=== PATIENT | male | born 1950 | race Caucasian/White ===

== ENCOUNTER 2016-09-27 10:35 | Outpatient (CLI) | payer OTHER ==
--- NOTE | 2016-09-27 13:25 | CT ---
EXAM: CT cervical spine without contrast HISTORY: Cervical radiculopathy COMPARISON: None TECHNIQUE: CT cervical spine performed without intravenous contrast. Coronal and sagittal reformat antonio images obtained. FINDINGS: Vertebral bodies are normal in height. No fracture. No subluxation. Multilevel margina l osteophyte formation. Multilevel intervertebral disc space narrowing with multilevel mild and mod erate intervertebral disc space narrowing. There are atherosclerotic calcifications in the carotid arteries. C2-C3: No central canal or neural foraminal narrowing. C3-C4: Posterior disc osteophyte complex and facet arthrosis causing mild central canal and moderat e bilateral neural foraminal narrowing. C4-C5: Posterior disc osteophyte complex and facet arthrosis causing mild central canal and mild bi lateral neural foraminal narrowing. C5-C6: Posterior disc osteophyte complex and facet arthrosis causing mild central canal and mild bi lateral neural foraminal narrowing. C6-C7: Posterior disc osteophyte complex and facet arthrosis causing mild central canal and mild to moderate bilateral neural foraminal narrowing. C7-C1: No central canal or neural foraminal narrowing. IMPRESSION: Chronic discogenic degenerative disease and facet arthrosis. Please see segmental anal ysis, noting central canal and neural foraminal narrowing.
--- NOTE | 2016-09-27 13:25 | DI ---
EXAM: Chest PA and lateral HISTORY: Cough FINDINGS: Prior studies are not available for comparison. The lungs are free of acute airspace or in terstitial opacities. The aorta is normal in caliber. The heart size is normal. The bones are intac t. No pneumothorax or pleural effusions are detected. Surgical clips are detected in the right upper quadrant. IMPRESSION: No acute cardiopulmonary disease.
--- NOTE | 2016-09-27 13:45 | CT ---
EXAM: CT thoracic spine without contrast HISTORY: Neck and back pain. COMPARISON: None TECHNIQUE: Serial axial images of the thoracic spine were obtained without contrast. These were vi ewed in multiple planes. FINDINGS: The vertebral bodies demonstrate no acute compression fracture. There is anterior disc os teophytes from the mid through distal thoracic spine. There is minimal facet arthropathy. Mild ant erior wedging deformities are noted in the mid and distal thoracic spine. No focal compression frac ture is identified. The soft tissues demonstrates scattered calcified mediastinal lymph nodes. The re is no significant central or neural foraminal narrowing noted in the thoracic spine. There is mi ld atherosclerotic disease. IMPRESSION: 1. No acute compression fracture or subluxation. 2. Mild scattered degenerative disease of the thoracic spine with no significant central or neural foraminal narrowing.
== END 2016-09-27 10:36 | disposition home or self-care (01) ==
LOC: RAD 10:35
PROVIDERS: ATTEND Internal Medicine
DX: M54.9 Dorsalgia, unspecified (principal); R05 Cough; M54.12 Radiculopathy, cervical region

== ENCOUNTER 2016-10-07 22:27 | Emergency (ER) ==
[2016-10-07 22:37] VITALS: TEMP 98.6; BMI 35.4
[2016-10-07] MEDS ORDERED: DUONEB NEB STA (23:15)
--- NOTE | 2016-10-07 23:34 | ED.PDOC ---
General ED Provider: Dr. FELICITY JONES Chief Complaint: Cough Stated Complaint: Cough for 3 days, worse at night. Cough is productive of yellow sputum. He coughed so much he got shot of breath tonight then came to ER. Time Seen by Physician: 23:31 Mode of Arrival: Walk-In Information Source: Patient Exam Limitations: No limitations Primary Care Provider: FORTUNATO NESBITT Nursing and Triage Documentation Reviewed and Agree: Yes Review of Systems - Review Of Systems Constitutional: Reports: No symptoms Eyes: Reports: No symptoms Ears, Nose, Mouth, Throat: Reports: No symptoms Respiratory: Reports: Cough, Short of air Cardiac: Reports: No symptoms GI: Reports: No symptoms : Reports: No symptoms Musculoskeletal: Reports: No symptoms Skin: Reports: No symptoms Neurological: Reports: Anxiety Endocrine: Reports: No symptoms Hematologic/Lymphatic: Reports: No symptoms All Other Systems: Reviewed and Negative Past Medical History - Past Medical History Endocrine: Reports: DM 1, Dyslipidemia Cardiovascular: Reports: Hypertension Respiratory: Reports: Asthma Hematological: Reports: None Gastrointestinal: Reports: None Genitourinary: Reports: None Neuro/Psych: Reports: None Musculoskeletal: Reports: None Cancer: Reports: Skin - Surgical History General Surgical History: Reports: Cholecystectomy, Orthopedic (Rotator vuff 2009, Trigger finger relase. ) - Family History Family History: Reports: None - Social History Smoking Status: Former smoker Hx Substance Use: Yes (ALCOHOL IN PAST) Alcohol Screening: None - Immunizations Tetanus Shot up to Date: (UNKNOWN) Physical Exam - Physical Exam Appearance: Well-appearing, Ill-appearing, No pain distress, Well-nourished Eyes: JENELLE, EOMI, Conjunctiva clear ENT: Ears normal, Nose normal, Oropharynx normal Respiratory: Airway patent, Breath sounds clear, Breath sounds equal, Respirations nonlabored Cardiovascular: RRR, Pulses normal, No rub, No murmur GI/: Soft, Nontender, No masses, Bowel sounds normal, No Organomegaly Musculoskeletal: Normal strength, ROM intact, No edema, No calf tenderness Skin: Warm, Dry, Normal color Neurological: Sensation intact, Motor intact, Reflexes intact, Cranial nerves intact, Alert, Oriented Psychiatric: Affect appropriate, Mood appropriate Interpretation - Radiology Interpretation Radiology Interpretation By: ED Physician Radiology Results: Negative Exam Interpreted: CXR Critical Care Note - Critical Care Note Total Time (mins): 0 Course - Course Hematology/Chemistry: 10/07/16 23:44 10/07/16 23:44 Orders, Labs, Meds: Lab Review 10/07/16 10/07/16 23:44 23:45 WBC 7.14 RBC 4.83 Hgb 14.9 Hct 43.1 MCV 89.2 MCH 30.8 MCHC 34.6 RDW Coeff of Brenda 13.4 Plt Count 148 Immature Gran % (Auto) 0.3 Neut % (Auto) 64.5 Lymph % (Auto) 18.8 [place] % (Auto) 10.8 H Eos % (Auto) 4.5 Baso % (Auto) 1.1 Immature Gran # (Auto) 0.0 Neut # 4.6 Lymph # 1.3 [place] # 0.8 Eos # 0.3 Baso # 0.1 Sodium 135 L Potassium 4.6 Chloride 101 Carbon Dioxide 22 L Anion Gap 16.6 BUN 24 H Creatinine 1.57 H Estimated GFR (MDRD) 44.00 BUN/Creatinine Ratio 15.28 Glucose 227 H Calcium 9.8 Total Bilirubin 0.61 AST 38 H ALT 71 Alkaline Phosphatase 81 Total Protein 7.7 Albumin 3.8 Globulin 3.9 Albumin/Globulin Ratio 0.97 Influenza A (Rapid) Negative Influenza B (Rapid) Negative Orders Category Date Time Status NEBULIZER TREATMENT Stat CARDIO 10/07/16 23:15 Completed BLOOD CULTURE Stat LAB 10/07/16 23:44 Received CBC W/ AUTO DIFF Stat LAB 10/07/16 23:44 Completed COMPREHENSIVE METABOLIC PANEL Stat LAB 10/07/16 23:44 Completed FLU A & B RAPID TEST [RAPID FLU A/B] Stat LAB 10/07/16 23:45 Completed MOLECULAR GROUP A STREP Stat LAB 10/07/16 23:45 Results STREP SCREEN Stat LAB 10/07/16 23:45 Results Benzonatate [Tessalon Perles] MEDS 10/08/16 00:11 Discontinued 100 mg PO ONCE STA Ipratropium/Albuterol Neb [Duoneb] MEDS 10/07/16 23:15 Discontinued 1 vial NEB ONCE STA CHEST, 2 VIEWS PA & LAT Stat RADS 10/07/16 23:15 Completed Medications Discontinued Medications Generic Name Dose Route Start Last Admin Trade Name Freq PRN Reason Stop Dose Admin Albuterol/Ipratropium 1 vial 10/07/16 23:15 10/07/16 23:41 Duoneb NEB 10/07/16 23:16 1 vial ONCE STA Administration Benzonatate 100 mg 10/08/16 00:11 10/08/16 00:21 Tessalon Perles PO 10/08/16 00:12 100 mg ONCE STA Administration Vital Signs: Temp Pulse Resp BP Pulse Ox 10/08/16 00:21 98.6 F 106 H 18 153/82 H 96 10/07/16 22:27 98.6 F 111 H 20 174/89 H 97 Departure - Departure Time of Disposition: 00:10 Disposition: HOME SELF-CARE Discharge Problem: Cough Instructions: Syncope (ED), Cold Symptoms (ED) Condition: Good Pt referred to PMD for follow-up: Yes Additional Instructions: Push fluids Use cough medications as prescribed Follow up with PCP in 3 days Follow up about Blood pressure also. It was elevated in ER. Prescriptions: Benzonatate [Tessalon Perles] 100 mg PO TID PRN #25 capsule PRN Reason: Cold Symptons Allergies/Adverse Reactions: Allergies No Known Drug Allergies Adverse Reaction (Verified 10/07/16 22:37) Home Medications: Ambulatory Orders Amlodipine Besylate 5 mg PO DAILY 10/07/16 Ascorbate Calcium [Vitamin C] 500 mg PO DAILY 10/07/16 Atorvastatin Calcium 20 mg PO DAILY 10/07/16 Bisoprolol Fumarate/Hctz [Bisoprolol-Hctz 10-6.25 mg Tab] 0.5 tab PO DAILY 10/07 Codeine/Promethazine Syrup [Phenergan with Codeine 6.25/10 mg/5 ml] 10 ml PO QID PRN 10/07/16 Cyclobenzaprine HCl [Flexeril] 5 mg PO TID PRN 10/07/16 D-Methorphan/Acetamin/Doxylamn [Vicks Nyquil Liquicaps] 1 each PO BID PRN D-Methorphan/PE/Acetaminophen [Vicks Dayquil Liquicaps] 1 cap PO BID PRN Ferrous Sulfate 325 mg PO BID 10/07/16 Guaifenesin/Pseudoephedrne HCl [Mucinex D ER Tablet] 1 each PO Q12H PRN Insulin Glargine,Hum.rec.anlog [Lantus] 85 unit SUBCUT BID 10/07/16 Insulin Lispro [Humalog] 1 unit SQ DIRECTED PRN 10/07/16 Lisinopril 0.5 tab PO DAILY 10/07/16 Loratadine/Pseudoephedrine [Allergy Congestion Relief Tab] 0.5 tab PO DAILY 02/15 Metformin HCl 500 mg PO BID 10/07/16 Multivitamin [Multi-Vitamin Daily] 1 each PO DAILY 10/07/16 Benzonatate [Tessalon Perles] 100 mg PO TID PRN #25 capsule 10/08/16
[2016-10-07 23:46] LABS: BASOPHILS # (AUTO) 0.1 K/uL (0-0.2); BASOPHILS % (AUTO) 1.1 % (0.0-3.0); EOSINOPHILS # (AUTO) 0.3 K/ul (0.0-0.7); EOSINOPHILS % (AUTO) 4.5 % (0.0-7.0); HEMATOCRIT 43.1 % (42.0-52.0); HEMOGLOBIN 14.9 g/dl (14.0-18.0); IMMATURE GRANULOCYTE % (AUTO) 0.3 % (0.0-5.0); LYMPHOCYTES # (AUTO) 1.3 K/uL (0.60-3.4); LYMPHOCYTES % (AUTO) 18.8 (10.0-50.0); MEAN CORPUSCULAR HEMOGLOBIN 30.8 pg (27.0-31.0); MEAN CORPUSCULAR HGB CONC 34.6 (31.8-35.4); MEAN CORPUSCULAR VOLUME 89.2 fl (80.0-94.0); MONOCYTES # (AUTO) 0.8 K/uL (0.4-2.0); MONOCYTES % (AUTO) 10.8 (0-10); NEUTROPHILS # (AUTO) 4.6 K/ul (2.0-6.9); NEUTROPHILS % (AUTO) 64.5; PLATELET COUNT 148 10^3/uL (140-440); RED BLOOD COUNT 4.83 10^6/ul (4.70-6.10); WHITE BLOOD COUNT 7.14 K/ul (4.2-10.2)
[2016-10-08 00:03] LABS: FLU INTERNAL QC INTERNAL QC VALID; RAPID FLU A NEGATIVE (NEGATIVE); RAPID FLU B NEGATIVE (NEGATIVE)
[2016-10-08 00:05] LABS: ALBUMIN 3.8 g/dL (3.4-5.0); ALBUMIN/GLOBULIN RATIO 0.97; ANION GAP 16.6; BILIRUBIN,TOTAL 0.61 mg/dL (0.00-1.20); BUN/CREATININE RATIO 15.28; CALCIUM 9.8 mg/dL (8.2-10.2); CREATININE 1.57 mg/dL (0.60-1.10); POTASSIUM 4.6 mmol/L (3.5-5.1); TOTAL PROTEIN 7.7 g/dL (5.8-8.1)
[2016-10-08] MEDS ORDERED: TESSALON PERLES PO STA (00:11)
[2016-10-08 00:23] VITALS: BP 153/82
--- NOTE | 2016-10-08 05:44 | DI ---
EXAM: PA and lateral views of the chest. HISTORY: Cough. FINDINGS: The bony structures are unremarkable. The cardiac silhouette and pulmonary vasculature a re within normal limits. The costophrenic angles are clear. No infiltrate or consolidation. Impression: No acute cardiopulmonary disease.
== END 2016-10-08 00:34 | disposition home or self-care (01) ==
LOC: ED 22:27
DX: R05 Cough (principal); R06.02 Shortness of breath; E10.9 Type 1 diabetes mellitus without complications; E78.5 Hyperlipidemia, unspecified; I10 Essential (primary) hypertension; Z79.899 Other long term (current) drug therapy
CPT/HCPCS: 36415; 80053; 85025; 87040; 87070; 87651; 87804; 87880; 94640; 99283

== ENCOUNTER 2018-01-05 07:59 | Day surgery (SDC) | payer OTHER ==
[2018-01-05] MEDS ORDERED: LIDOCAINE 1% 20 ML MDV ID STA (09:44)
[2018-01-05] MEDS ORDERED: VERSED ONE (10:50)
[2018-01-05] MEDS ORDERED: DIPRIVAN 20 ML VIAL IVP ONE (10:50)
[2018-01-05 15:01] VITALS: BP 150/65; TEMP 97.7
--- NOTE | 2018-01-06 11:20 | OP ---
PROCEDURE: COLONOSCOPY TO CECUM WITH SNARE POLYPECTOMY. ENDOSCOPIST: Radha CONKLIN M.D. INDICATION: HISTORY OF POLYPS INSTRUMENT: [employer]-[id number]. MEDICATION: PER ANESTHESIA. PROCEDURE: The patient was positioned for colonoscopy. The digital rectal exam was negative. The colonoscope was inserted through the anus and advanced to the cecum. The cecum was identified using the ileocecal valve and the appendiceal orifice as landmarks. The scope was slowly withdrawn through an adequately prepped colon. [place] Bowel Prep Score 2+3+3=8. Small polyps removed at 50cm, 60cm and 30cm using snare cautery. All were less than 1cm. Diverticulosis of the left colon. Retroflex exam was otherwise normal. The patient tolerated the procedure well without immediate complication. Withdraw time 12 minutes and 44 seconds. PLAN: 1. Suggest repeat colonoscopy in 3 years. CC: Dr. Tej CHAUHAN
== END 2018-01-05 12:00 | disposition home or self-care (01) ==
LOC: SURG 07:59
PROVIDERS: ATTEND Internal Medicine Gastroenterology
DX: Z86.010 Personal history of colon polyps (principal); K63.5 Polyp of colon; K57.30 Diverticulosis of large intestine without perforation or abscess without bleeding; Z09 Encounter for follow-up examination after completed treatment for conditions other than malignant neoplasm

== ENCOUNTER 2018-09-17 07:12 | Outpatient (CLI) | END 2018-09-17 07:13 | disposition home or self-care (01) | LOC: LAB 07:12 | PROVIDERS: ATTEND Internal Medicine | DX: E11.9 Type 2 diabetes mellitus without complications (principal) | CPT/HCPCS: 81050; 82575; 84156 ==

== ENCOUNTER 2018-10-01 07:03 | Outpatient (CLI) | payer OTHER ==
--- NOTE | 2018-10-01 08:11 | US ---
EXAM: Renal ultrasound HISTORY: Diabetes protein in urine COMPARISON: None TECHNIQUE: Renal ultrasound was performed FINDINGS: Right kidney measures 4.9 x 5.1 x 10.8 cm. Left kidney measures 5.0 x 5.0 x 10.7 cm. Anam al cortical echogenicity is normal. No hydronephrosis or renal calculus large enough to cause acoust ic shadowing. Simple anechoic cyst right inferior kidney measuring 2.5 x 2.2 x 2.2 cm. Bladder only mildly distended and poorly evaluated, grossly unremarkable. A left ureteral jet is visualized. No right ureteral jet visualized. Visualized liver is echogenic. IMPRESSION: 1. No hydronephrosis. 2. Left renal cyst. 3. Hepatic steatosis.
== END 2018-10-01 07:04 | disposition home or self-care (01) ==
LOC: RAD 07:03
PROVIDERS: ATTEND Internal Medicine
DX: E11.9 Type 2 diabetes mellitus without complications (principal); R80.9 Proteinuria, unspecified

== ENCOUNTER 2020-03-30 10:14 | Inpatient (IN) ==
--- NOTE | 2020-03-30 10:44 | ED.PDOC ---
General ED Provider: Dr. JACOB GARSIA Chief Complaint: Back Pain Time Seen by Physician: 10:44 Mode of Arrival: Walk-In Information Source: Patient Primary Care Provider: FORTUNATO NESBITT Sepsis Protocol: For patient's 13 years and over: Temp is 96.8 and below OR 101 and greater Pulse >90 BPM Resp >20/minute Acutely Altered Mental Status Are patient's symptoms suggestive of a new infection, such as: -Pneumonia -Skin, Soft Tissue -Endocarditis -UTI -Bone, Joint Infection -Implantable Device -Acute Abdominal Infection -Wound Infection -Meningitis -Blood Stream Catheter Infection -Unknown Course Course Vital Signs: Temp Pulse Resp BP Pulse Ox 03/30/20 10:15 95.0 F L 71 18 192/83 H 96 Discharge Plan Discharge Prescriptions: No Action multivitamin [Daily Multi-Vitamin] 1 EACH tablet 1 ea PO DAILY RF: 0 atorvastatin 20 MG tablet 20 mg PO DAILY RF: 0 Lantus U-100 Insulin 1 UNIT solution 80 unit subcut BID RF: 0 amlodipine 5 MG tablet 5 mg PO DAILY RF: 0 loratadine-pseudoephedrine [Allergy and Congestion Relief] 1 EACH tablet extended release 24 hr 0.5 tab PO DAILY RF: 0 ferrous sulfate 325 MG tablet 325 mg PO BID RF: 0 metformin 1,000 MG tablet 500 mg PO BID RF: 0 ascorbate calcium (vitamin C) 500 MG tablet 500 mg PO DAILY RF: 0 insulin lispro [Humalog U-100 Insulin] 100 UNIT/ML solution 1 unit SQ DIRECTED PRN (Reason: ELEVATED BLOOD SUGAR) RF: 0 bisoprolol-hydrochlorothiazide 10-6.25 mg Tablet 1 tab PO DAILY RF: 0 acetaminophen 650 mg Tablet Extended Release 650 mg PO Q12H RF: 0 losartan 100 mg Tablet 100 mg PO DAILY RF: 0 ED Provider: JACOB GARSIA
--- NOTE | 2020-03-30 11:02 | ED.PDOC ---
General ED Provider: Dr. JACOB GARSIA Chief Complaint: Back Pain Stated Complaint: Rt Flank Pain Sudden onset while driving this morning. Was initially improved after his trip to the ER yesterday for Rt Flank pain Evaluated in ER yesterday for Rt Flank pain and suspected Renal stone. CT scan suggests recently passed Rt Renal Stone. After Treatment with IV Morphine 4 mg initially improved and was discharged to home only to have the pain return last evening and worsen this morning. Currently appears uncomfortable, skin moist; Exam non specific for localized pain to exam Time Seen by Physician: 10:20 Mode of Arrival: Walk-In Information Source: Patient Exam Limitations: No limitations Primary Care Provider: FORTUNATO NESBITT Seen Within Last 72 Hours for Same Complaint By: ED Nursing and Triage Documentation Reviewed and Agree: Yes Does patient meet sepsis criteria?: No System Inflammatory Response Syndrome: Not Applicable Sepsis Protocol: For patient's 13 years and over: Temp is 96.8 and below OR 101 and greater Pulse >90 BPM Resp >20/minute Acutely Altered Mental Status Are patient's symptoms suggestive of a new infection, such as: -Pneumonia -Skin, Soft Tissue -Endocarditis -UTI -Bone, Joint Infection -Implantable Device -Acute Abdominal Infection -Wound Infection -Meningitis -Blood Stream Catheter Infection -Unknown Musculoskeletal Complaint Exam Back Pain Complaint/Exam Mechanism of Injury: Reports No known trauma Onset/Duration: Earlier this AM Symptoms Are: Still present Timing: Constant Episodes Lasting: Hours Initial Severity: Moderate Current Severity: Moderate Location: Reports Discrete Character: Reports Aching Aggravating: Reports None Alleviating: Reports None Related History: Reports Similar episode; Denies Occupational injury and Previous back injury TAD Risk Factors: Reports None AAA Risk Factors: Reports None Cauda Equina Risk Factors: Reports None Epidural Abcess Risk Factors: Reports None Related Surgical History: Reports None Focal Tenderness: No Paraspinal Muscle Tenderness: No Paraspinal Muscle Spasm: No Scoliosis: No Lordosis: No SLR Test: Right Negative and Left Negative Hip Motion Testing Pain: Right Negative and Left Negative Focal Weakness: Present None Focal Sensory Loss: Present None Gait: Present Normal Back Picture: 1. Differential Diagnoses: Renal Colic Review of Systems Review Of Systems Constitutional: Reports No symptoms Eyes: Reports No symptoms Ears, Nose, Mouth, Throat: Reports No symptoms Respiratory: Reports No symptoms Cardiac: Reports No symptoms GI: Reports No symptoms : Reports No symptoms and Flank pain Musculoskeletal: Reports No symptoms Skin: Reports No symptoms Neurological: Reports No symptoms Endocrine: Reports No symptoms Hematologic/Lymphatic: Reports No symptoms All Other Systems: Reviewed and Negative Physical Exam Physical Exam Appearance: Reports Ill-appearing and Obese Ill-appearing: Mild Pain Distress: Mild Eyes: Reports JENELLE, EOMI and Conjunctiva clear ENT: Reports Ears normal, Nose normal and Oropharynx normal Neck: Supple Respiratory: Reports Airway patent, Breath sounds clear and Breath sounds equal Cardiovascular: Reports RRR, Pulses normal, No rub and No murmur GI/: Reports Soft, No masses, Bowel sounds normal, No Organomegaly and Tender (No guarding or rebound tenderness. Lower flank tenderness); Denies Bowel sounds hyperactive, Hepatomegaly and Splenomegaly Musculoskeletal: Reports Normal strength, ROM intact and No edema Skin: Reports Warm and Dry Neurological: Reports Sensation intact, Motor intact, Cranial nerves intact, Alert and Oriented Psychiatric: Reports Affect appropriate, Mood appropriate and Anxious Interpretation Radiology Interpretation Radiology Interpretation By: Radiologist Xray Comments: Perinephric stranding /nephrolithiasis EKG Interpretation Time of EKG #1: 13:32 Rhythm: Sinus Interpretation: 1st degree AV Block Re-Evaluation Re-Evaluation Time of Re-Evaluation: 13:00 Status: Worse Vital Signs Stable: Yes (04/10) Appearance: NAD Lungs: Clear Skin: Warm and Dry Neuro: Alert and Oriented X3 CV: RRR Physician Notification Case Discussed Physician Notified: Dr Nesbitt-Case reviewed. Concurs with recommendation for admission/treatment Time of Notification: 13:00 Critical Care Note Critical Care Note Total Time (mins): 30 Course Course Hematology/Chemistry: 03/30/20 11:25 03/30/20 11:25 Orders, Labs, Meds: Lab Review 03/30/20 03/30/20 03/30/20 11:25 11:25 11:37 WBC 10.17 RBC 4.90 Hgb 15.1 Hct 44.7 MCV 91.2 MCH 30.8 MCHC 33.8 RDW Coeff of Brenda 13.6 Plt Count 197 Immature Gran % (Auto) 0.3 Neut % (Auto) 60.6 Lymph % (Auto) 24.8 [place] % (Auto) 11.4 H Eos % (Auto) 1.9 Baso % (Auto) 1.0 Neut # (Auto) 6.2 Lymph # (Auto) 2.5 [place] # (Auto) 1.2 Eos # (Auto) 0.2 Baso # (Auto) 0.1 Immature Gran # (Auto) 0.0 Sodium 141.2 Potassium 3.93 Chloride 100.9 Carbon Dioxide 30.0 Anion Gap 14.23 BUN 26.6 H Creatinine 2.00 H Estimated GFR (MDRD) 33.00 BUN/Creatinine Ratio 13.30 Glucose 140.9 H D Calcium 11.24 H Total Bilirubin 0.78 AST 57.8 ALT 58.7 H Alkaline Phosphatase 87.1 Total Protein 8.92 H Albumin 4.98 Globulin 3.94 Albumin/Globulin Ratio 1.26 Urine Color Yellow Urine Clarity Clear Urine pH 5.5 Ur Specific [place] 1.025 Urine Protein 3+ H Urine Glucose (UA) Negative Urine Ketones Negative Urine Blood 2+ H Urine Nitrite Negative Urine Bilirubin Negative Urine Urobilinogen 0.2 Ur Leukocyte Esterase Negative Urine Microscopic RBC 10-20 Urine Microscopic WBC 2-5 Ur Squamous Epith Cells 0-2 Urine Bacteria 1+ Hyaline Casts 2-5 Orders Category Date Time Status IV [ED IV/MEDIPORT/POWERPORT] .ONCE EMERGENCY 03/30/20 11:46 Active CBC W/ AUTO DIFF Stat LAB 03/30/20 11:25 Completed CMP [COMPREHENSIVE METABOLIC PANEL] Stat LAB 03/30/20 11:25 Completed UA [URINALYSIS C & S IF INDICATED] Stat LAB 03/30/20 11:37 Completed URINE CULTURE Stat LAB 03/30/20 11:37 Received 0.9 % Sodium Chloride [Saline Flush] MEDS 03/30/20 11:46 Active 1 syr IVF PRN PRN Ceftriaxone/D5w 1 gm Premix [Rocephin 1 gm/50 ml D5w] MEDS 03/30/20 13:30 Active 1 gm in 50 ml IV DAILY Morphine Sulfate [Morphine 4 mg/ml Syringe] MEDS 03/30/20 13:15 Discontinued 4 mg IVP ONCE STA Nalbuphine HCl [Nubain] MEDS 03/30/20 11:47 Discontinued 10 mg IVP ONCE STA Ondansetron HCl/Pf [Zofran 4 mg/2 ml] MEDS 03/30/20 11:48 Discontinued 4 mg IVP ONCE STA Ondansetron [Zofran Odt] MEDS 03/30/20 11:44 Discontinued 4 mg PO ONCE STA Sodium Chloride 0.9% [Sodium Chloride] 1,000 ml MEDS 03/30/20 11:46 Discontinued IV BOLUS Tamsulosin HCl [Flomax] MEDS 03/30/20 13:08 Discontinued 0.4 mg PO ONCE STA CT ABD/PEL WO RENAL STONE PROT Stat RADS 03/30/20 11:03 Completed Medications Generic Name Dose Route Start Last Admin Trade Name Adonisq PRN Reason Stop Dose Admin Amlodipine Besylate 5 mg 03/31/20 09:00 Norvasc PO DAILY TY Atorvastatin Calcium 20 mg 03/31/20 09:00 Lipitor PO DAILY TY Bisoprolol Fumarate/HCTZ 1 tab 03/31/20 09:00 [place]iac 10-6.25 Mg PO DAILY TY CEFTRIAXONE/D5W 1 GM PREMIX 1 gm in 50 mls @ 75 mls/hr 03/30/20 13:30 03/30/20 13:25 Rocephin 1 Gm/50 Ml D5w IV 04/02/20 13:29 75 mls/hr DAILY TY Administration CEFTRIAXONE/D5W 1 GM PREMIX 1 gm in 50 mls @ 75 mls/hr 03/31/20 09:00 Rocephin 1 Gm/50 Ml D5w IV 04/03/20 08:59 DAILY [facility] Insulin Glargine 80 unit 03/30/20 21:00 Lantus SUBCUT BID [facility] Insulin Human Lispro 1 unit 03/30/20 13:48 Humalog SUBCUT DIRECTED PRN Elevated Glucose Losartan Potassium 100 mg 03/31/20 09:00 Cozaar PO DAILY TY Multivitamins 1 tab 03/31/20 09:00 Multivitamin Tablet PO DAILY TY Non-Formulary Medication 650 mg 03/30/20 14:00 Acetaminophen PO Q12H TY Non-Formulary Medication 500 mg 03/31/20 09:00 Ascorbate Calcium (Vitamin C) PO DAILY TY Sodium Chloride 1 syr 03/30/20 11:46 03/30/20 13:30 Saline Flush IVF 1 syr PRN PRN Administration To flush IV Discontinued Medications Generic Name Dose Route Start Last Admin Trade Name Freq PRN Reason Stop Dose Admin Sodium Chloride 1,000 mls @ 1,000 mls/hr 03/30/20 11:46 03/30/20 11:57 Sodium Chloride IV 03/30/20 12:45 1,000 mls/hr BOLUS STA Administration Morphine Sulfate 4 mg 03/30/20 13:15 03/30/20 13:27 Morphine 4 Mg/Ml Syringe IVP 03/30/20 13:16 4 mg ONCE STA Administration Nalbuphine HCl 10 mg 03/30/20 11:47 03/30/20 11:54 Nubain IVP 03/30/20 11:48 10 mg ONCE STA Administration Ondansetron HCl 4 mg 03/30/20 11:44 03/30/20 12:05 Zofran Odt PO 03/30/20 11:45 Not Given ONCE STA Ondansetron HCl 4 mg 03/30/20 11:48 03/30/20 11:54 Zofran 4 Mg/2 Ml IVP 03/30/20 11:49 4 mg ONCE STA Administration Tamsulosin HCl 0.4 mg 03/30/20 13:08 03/30/20 13:27 Flomax PO 03/30/20 13:09 0.4 mg ONCE STA Administration Vital Signs: Temp Pulse Resp BP Pulse Ox 03/30/20 10:15 95.0 F L 71 18 192/83 H 96 Discharge Plan Discharge Patient Disposition: ADMITTED INPATIENT Discharge Problem: Renal colic on right side, Right nephrolithiasis, Pyelonephritis of right kidney ED Provider: JACOB GARSIA Condition: Stable Additional Comments Additional Comments: Perinephric stranding of Rt Kidney is demonstrated on CT Scan. This refers to the appearance of edema within the fat of the perirenal space and is suggestive of renal inflammation or acute obstruction.
[2020-03-30 11:33] LABS: BASOPHILS # (AUTO) 0.1 K/uL (0-0.2); EOSINOPHILS # (AUTO) 0.2 K/ul (0.0-0.7); EOSINOPHILS % (AUTO) 1.9 % (0.0-7.0); HEMATOCRIT 44.7 % (42.0-52.0); HEMOGLOBIN 15.1 g/dl (14.0-18.0); IMMATURE GRANULOCYTE % (AUTO) 0.3 % (0.0-5.0); LYMPHOCYTES # (AUTO) 2.5 K/uL (0.60-3.4); LYMPHOCYTES % (AUTO) 24.8 (10.0-50.0); MEAN CORPUSCULAR HEMOGLOBIN 30.8 pg (27.0-31.0); MEAN CORPUSCULAR HGB CONC 33.8 (31.8-35.4); MEAN CORPUSCULAR VOLUME 91.2 fl (80.0-94.0); MONOCYTES # (AUTO) 1.2 K/uL (0.4-2.0); MONOCYTES % (AUTO) 11.4 (0-10); NEUTROPHILS # (AUTO) 6.2 K/ul (2.0-6.9); NEUTROPHILS % (AUTO) 60.6 % (42.2-75.2); PLATELET COUNT 197 10^3/uL (140-440); RDW COEFFICIENT OF VARIATION 13.6 % (11.6-14.8); WHITE BLOOD COUNT 10.17 K/ul (4.2-10.2)
[2020-03-30] MEDS ORDERED: NUBAIN IM STA (11:43)
[2020-03-30] MEDS ORDERED: ZOFRAN ODT PO STA (11:44)
[2020-03-30 11:46] LABS: BILIRUBIN,URINE Negative (NEGATIVE); CLARITY,URINE Clear (CLEAR); COLOR,URINE Yellow (YELLOW); GLUCOSE, URINE (UA) Negative (NEGATIVE); KETONES,URINE Negative (NEGATIVE); LEUKOCYTE ESTERASE ,URINE Negative (NEGATIVE); NITRITE,URINE Negative (NEGATIVE); PH,URINE 5.5 (5-9); PROTEIN,URINE 3+ (NEGATIVE); URINE, BLOOD 2+ (NEGATIVE); UROBILINOGEN,URINE 0.2 (0.2)
[2020-03-30] MEDS ORDERED: SODIUM CHLORIDE 1,000 ML IV STA (11:46)
--- NOTE | 2020-03-30 11:46 | CT ---
EXAM: CT Abdomen without contrast. CT Pelvis without contrast. HISTORY: Right flank pain. Right mid abdominal pain. COMPARISON: 03/29/2020. TECHNIQUE: Multiple axial images of the abdomen and pelvis were obtained without intravenous contras t. Images were reformatted in the sagittal and coronal plane. FINDINGS: Please note that evaluation of the abdominal and pelvic structures is limited due to lack of intravenous contrast. Lung bases are clear. Degenerative changes present in the spine. The gallbladder is absent. The liver, pancreas, spleen, adrenal glands are unremarkable. Probable hemorrhagic left renal cyst on coronal image 54. Left nephrolithiasis noted without left hy dronephrosis. There is mild right hydronephrosis and moderate right perinephric stranding without ob structing calculus identified. There are nonobstructing right renal calculi. Right lower pole cyst again noted. Bladder is normal. There is no bowel obstruction or acute inflammation. Appendix not seen. Diverticulosis noted. No localized prostate abnormalities seen. Phleboliths noted in the pelvis. Atherosclerotic calcific ations are present. There is no free fluid or free air identified. Subcutaneous edema in the anterior abdomen noted. IMPRESSION: Stable mild right hydronephrosis with perinephric stranding without visualized obstructing calculus. Findings could be sequela of recently passed calculus or urinary tract infection. There is bilatera l nephrolithiasis.
[2020-03-30 11:47] LABS: ALANINE AMINOTRANSFERASE 58.7 U/L (0-50); ALBUMIN 4.98 g/dL (3.5-5.0); ALKALINE PHOSPHATASE 87.1 U/L (56-119); ASPARTATE AMINO TRANSFERASE 57.8 U/L (17-59); BILIRUBIN,TOTAL 0.78 mg/dL (0.2-1.3); BLOOD UREA NITROGEN 26.6 mg/dL (9-20); CALCIUM 11.24 mg/dL (8.4-10.2); CHLORIDE 100.9 mmol/L (98-107); GLUCOSE 140.9 mg/dL (74-106); POTASSIUM 3.93 mmol/L (3.5-5.1); SODIUM 141.2 mmol/L (134.5-145); TOTAL PROTEIN 8.92 g/dL (6.3-8.2)
[2020-03-30] MEDS ORDERED: NUBAIN IVP STA (11:47)
[2020-03-30] MEDS ORDERED: ZOFRAN 4 MG/2 ML IVP STA (11:48)
[2020-03-30 11:57] LABS: BACTERIA,URINE 1+ (NOT PRESENT); SQUAMOUS EPITHELIAL CELL,UR 0-2 (0-5)
[2020-03-30] MEDS ORDERED: FLOMAX PO STA (13:08)
[2020-03-30] MEDS ORDERED: MORPHINE 4 MG/ML SYRINGE IVP STA (13:15)
[2020-03-30] MEDS ORDERED: ROCEPHIN 1 GM/50 ML D5W 1 GM/50 ML BAG IV ONE (13:23)
[2020-03-30] MEDS ORDERED: ROCEPHIN 1 GM/50 ML D5W 1 GM/50 ML BAG IV SCH (13:30)
[2020-03-30] MEDS ORDERED: HUMALOG SUBCUT PRN (13:48)
[2020-03-30] MEDS ORDERED: NON-FORMULARY MEDICATION (Acetaminophen 650 MG) PO SCH (14:00)
[2020-03-30 14:23] VITALS: BMI 33.5
[2020-03-30] MEDS: TYLENOL PO SCH ×2 (14:45→20:26)
[2020-03-30] MEDS: GLUCOPHAGE PO SCH (17:43)
[2020-03-30] MEDS: FERROUS SULFATE PO SCH (17:43)
[2020-03-30] MEDS: HUMALOG SUBCUT PRN ×2 (17:43→20:27)
[2020-03-30] MEDS ORDERED: MORPHINE 4 MG/ML SYRINGE IVP PRN (18:41)
[2020-03-30] MEDS: LANTUS SUBCUT SCH (20:30)
[2020-03-30] MEDS ORDERED: NON-FORMULARY MEDICATION (Ferrous Sulfate 325 MG) PO SCH (21:00)
[2020-03-31 05:17] LABS: BASOPHILS # (AUTO) 0.1 K/uL (0-0.2); EOSINOPHILS # (AUTO) 0.2 K/ul (0.0-0.7); EOSINOPHILS % (AUTO) 2.5 % (0.0-7.0); HEMOGLOBIN 13.8 g/dl (14.0-18.0); IMMATURE GRANULOCYTE % (AUTO) 0.1 % (0.0-5.0); LYMPHOCYTES # (AUTO) 1.8 K/uL (0.60-3.4); LYMPHOCYTES % (AUTO) 24.4 (10.0-50.0); MEAN CORPUSCULAR HEMOGLOBIN 31.1 pg (27.0-31.0); MEAN CORPUSCULAR HGB CONC 33.7 (31.8-35.4); MEAN CORPUSCULAR VOLUME 92.3 fl (80.0-94.0); MONOCYTES # (AUTO) 0.8 K/uL (0.4-2.0); MONOCYTES % (AUTO) 11.7 (0-10); NEUTROPHILS # (AUTO) 4.3 K/ul (2.0-6.9); NEUTROPHILS % (AUTO) 60.3 % (42.2-75.2); PLATELET COUNT 184 10^3/uL (140-440); RDW COEFFICIENT OF VARIATION 13.5 % (11.6-14.8); RED BLOOD COUNT 4.44 10^6/ul (4.70-6.10); WHITE BLOOD COUNT 7.16 K/ul (4.2-10.2)
[2020-03-31 05:36] LABS: ALANINE AMINOTRANSFERASE 43.2 U/L (0-50); ALBUMIN 4.16 g/dL (3.5-5.0); BILIRUBIN,TOTAL 0.46 mg/dL (0.2-1.3); BLOOD UREA NITROGEN 26.8 mg/dL (9-20); CALCIUM 10.04 mg/dL (8.4-10.2); CARBON DIOXIDE 29.3 mmol/L (22-30.0); CHLORIDE 101.2 mmol/L (98-107); CREATININE 1.75 mg/dL (0.60-1.10); POTASSIUM 3.76 mmol/L (3.5-5.1); SODIUM 139.1 mmol/L (134.5-145); TOTAL PROTEIN 7.29 g/dL (6.3-8.2)
[2020-03-31 05:48] VITALS: BP 127/78; TEMP 97.4
[2020-03-31] MEDS: FERROUS SULFATE PO SCH (05:57)
[2020-03-31] MEDS: TYLENOL PO SCH (08:52)
[2020-03-31] MEDS: GLUCOPHAGE PO SCH (08:53)
[2020-03-31] MEDS ORDERED: LIPITOR PO SCH (09:00)
[2020-03-31] MEDS ORDERED: NON-FORMULARY MEDICATION (Ascorbate Calcium (Vitamin C) 500 MG) PO SCH (09:00)
[2020-03-31] MEDS ORDERED: VITAMIN C PO SCH (09:00)
[2020-03-31] MEDS ORDERED: ROCEPHIN 1 GM/50 ML D5W 1 GM/50 ML BAG IV SCH (09:00)
[2020-03-31] MEDS ORDERED: MULTIVITAMIN TABLET PO SCH (09:00)
[2020-03-31] MEDS ORDERED: ZIAC 10-6.25 MG PO SCH (09:00)
[2020-03-31] MEDS ORDERED: NORVASC PO SCH (09:00)
[2020-03-31] MEDS ORDERED: COZAAR PO SCH (09:00)
[2020-03-31] MEDS: LANTUS SUBCUT SCH (09:05)
--- NOTE | 2020-03-31 11:22 | PCM.PROG ---
Attending Provider: ATTENDING PROVIDER: Dr. FORTUNATO NESBITT This patient is seen with Marisel Mckeon, Nurse Practitioner. DATE OF SERVICE: 03/31/20 SUBJECTIVE: This 69 year old /WHITE M was hospitalized 03/30/20. The patient is resting comfortably. She has been up and about in the room. He reports right lumbar flank severe pain around 7pm that resolved on it's own. he has not required any pain medication since ER. He is eating and drinking well. REVIEW OF SYSTEMS: CONSTITUTIONAL: No night sweats. No fatigue, malaise, lethargy. No fever or chills. HEENT: Eyes: No visual changes. No eye pain. No eye discharge. ENT: No runny nose. No epistaxis. No sinus pain. No odynophagia. No congestion. RESPIRATORY: No cough, no congestion. No hemoptysis. No shortness of breath. CARDIOVASCULAR: No angina symptoms. No CHF symptoms. No atypical chest pain for CAD. No palpitations. No orthopnea.. GASTROINTESTINAL: No abdominal pain. No nausea or vomiting. No diarrhea or constipation. No hematemesis. No hematochezia. GENITOURINARY: No urgency. No frequency. No dysuria. No hematuria. No obstructive symptoms. No discharge. No pain. No significant abnormal bleeding. MUSCULOSKELETAL: No musculoskeletal pain; no joint swelling. Pain right lumbar flank groin, improved. NEUROLOGICAL: Awake, alert, oriented to time, place and person. No headache. No neck pain. No syncope. No seizures. No dizziness. PSYCHIATRIC: Not anxious. No depression. No suicidal thoughts. No homicidal tho ughts. SKIN: No rash. No lesions. No wounds. ENDOCRINE: No unexplained weight loss. No weight gain. HEMATOLOGIC/LYMPHATIC: No anemia. No purpura. No petechiae. No prolonged or excessive bleeding. No palpable lymph nodes. PHYSICAL EXAMINATION: GENERAL: The patient is awake, alert and oriented, sitting in chair in no distress. VITAL SIGNS: Temperature 97.4 F, Pulse 100, Respiratory Rate 16, BP 127/78, Pulse Ox 95% HEENT: Head normocephalic, atraumatic. Eyes: Extraocular muscles are intact. Pupils are equal, round and reactive to light and accommodation. Ears: No lesions. Nose appeared normal. Throat: No exudate or erythema. NECK: Supple. No JVD, no carotid bruit. No lymphadenopathy or thyromegaly. LUNGS: Diminished breath sounds. Clear to auscultation. Percussion note normal. Chest symmetrical. HEART: S1, S2, no S3. No murmurs. No cyanosis or clubbing. No ascites. Pulses: Dorsalis pedis and posterior tibial pulses +1 to +2 both sides. ABDOMEN: Soft. Non-tender. Bowel sounds active. No CVA tenderness. No mass felt. GENITOURINARY: Dark yellow urine. EXTREMITIES: No edema. Full range of motion of all extremities, equal. NEUROLOGIC: No focal deficit. Cranial nerves II through XII are grossly intact. No headache, no double vision or headache. SKIN: Not dry. Intact. Turgor-normal. LYMPHATIC: No palpable lymph nodes/no lymphedema. MUSCULOSKELETAL: Normal joints with no swelling. Muscle tone is normal. LAB REVIEW: 03/31/20 04:59 03/31/20 04:59 03/31/20 04:59: Sodium 139.1, Potassium 3.76, Chloride 101.2, Carbon Dioxide 29.3, Anion Gap 12.36, BUN 26.8 H, Creatinine 1.75 H, Estimated GFR (MDRD) 39.00, BUN/Creatinine Ratio 15.31, Glucose 117.0 H, Calcium 10.04, Total Bilirubin 0.46, AST 43.0, ALT 43.2, Alkaline Phosphatase 72.0, Total Protein 7.29, Albumin 4.16, Globulin 3.13, Albumin/Globulin Ratio 1.32 03/31/20 04:59: WBC 7.16, RBC 4.44 L, Hgb 13.8 L, Hct 41.0 L, MCV 92.3, MCH 31.1 H, MCHC 33.7, RDW Coeff of Brenda 13.5, Plt Count 184, Immature Gran % (Auto) 0.1, Neut % (Auto) 60.3, Lymph % (Auto) 24.4, [place] % (Auto) 11.7 H, Eos % (Auto) 2.5, Baso % (Auto) 1.0, Neut # (Auto) 4.3, Lymph # (Auto) 1.8, [place] # (Auto) 0.8, Eos # (Auto) 0.2, Baso # (Auto) 0.1, Immature Gran # (Auto) 0.0 03/30/20 11:37: Urine Color Yellow, Urine Clarity Clear, Urine pH 5.5, Ur Specific [place] 1.025, Urine Protein 3+ H, Urine Glucose (UA) Negative, Urine Ketones Negative, Urine Blood 2+ H, Urine Nitrite Negative, Urine Bilirubin Negative, Urine Urobilinogen 0.2, Ur Leukocyte Esterase Negative, Urine Microscopic RBC 10-20, Urine Microscopic WBC 2-5, Ur Squamous Epith Cells 0-2, Urine Bacteria 1+, Hyaline Casts 2-5 03/30/20 11:25: WBC 10.17, RBC 4.90, Hgb 15.1, Hct 44.7, MCV 91.2, MCH 30.8, MCHC 33.8, RDW Coeff of Brenda 13.6, Plt Count 197, Immature Gran % (Auto) 0.3, Neut % (Auto) 60.6, Lymph % (Auto) 24.8, [place] % (Auto) 11.4 H, Eos % (Auto) 1.9, Baso % (Auto) 1.0, Neut # (Auto) 6.2, Lymph # (Auto) 2.5, [place] # (Auto) 1.2, Eos # (Auto) 0.2, Baso # (Auto) 0.1, Immature Gran # (Auto) 0.0 03/30/20 11:25: Sodium 141.2, Potassium 3.93, Chloride 100.9, Carbon Dioxide 30.0, Anion Gap 14.23, BUN 26.6 H, Creatinine 2.00 H, Estimated GFR (MDRD) 33.00, BUN/Creatinine Ratio 13.30, Glucose 140.9 H D, Calcium 11.24 H, Total Bilirubin 0.78, AST 57.8, ALT 58.7 H, Alkaline Phosphatase 87.1, Total Protein 8.92 H, Albumin 4.98, Globulin 3.94, Albumin/Globulin Ratio 1.26 ASSESSMENT: Please see below. 1. Nephrolithiasis 2. Right lumbar flank pain. PLAN: 1. Monitor urine 2. Encourage increased fluid intake 3. Monitor for pain. Plan and coordination of the patient's care discussed in the presence of Rubber Compounder Formulator and nurse. SCRIBED BY: Timo BENAVIDES scribed while in presence of service performed by Dr. Nesbitt/Marisel Mckeon APRN on 03/31/20 ([id number])
[2020-03-31] MEDS: HUMALOG SUBCUT PRN (11:28)
--- NOTE | 2020-03-31 13:09 | HP ---
DATE OF SERVICE: 03/30/2020 ADMIT NOTE REASON FOR HOSPITALIZATION: Right flank pain. SUBJECTIVE: 68 year old white male who was seen in the emergency room yesterday and was discharged after him having right flank pain which was diagnosed to be urinary colic. The patient's condition had improved according to him and he practically had no pain. The pain restarted this morning a sudden onset while he was driving. The patient's pain was rated as 6-9 on scale of 1-10. I examined the patient in the emergency room at that time he was in mild distress with pain in the right quadrant. The patient's says that the pain started in the right flank area and then moved down to right lower quadrant. REVIEW OF SYSTEMS: CONSTITUTIONAL: No night sweats. Fatigue from being in pain for past two days. No fever or chills. HEENT: Eyes: No visual changes. No eye pain. No eye discharge. ENT: No runny nose. No epistaxis. No sinus pain. No sore throat. No odynophagia. No congestion. RESPIRATORY: No cough, no congestion. No hemoptysis. No shortness of breath. CARDIOVASCULAR: No angina symptoms. No CHF symptoms. No atypical chest pain for CAD. No palpitations. No PND. No orthopnea. GASTROINTESTINAL: No abdominal pain. No nausea or vomiting. No diarrhea or constipation. No hematemesis. No hematochezia. GENITOURINARY: No urgency. No frequency. No dysuria. No hematuria. No obstructive symptoms. No discharge. No pain. No significant abnormal bleeding. The patient has left urinary colic type of symptoms. Right flank pain. Now the patient has right lower quadrant pain. Intensity of pain is 6-9 out of 1-10. MUSCULOSKELETAL: No musculoskeletal pain; no joint swelling. NEUROLOGICAL: No headache. No neck pain. No syncope. No seizures. No dizziness. PSYCHIATRIC: Not anxious. No depression. No suicidal thoughts. No homicidal thoughts. SKIN: No rash. No lesions. No wounds. ENDOCRINE: No unexplained weight loss. No weight gain. HEMATOLOGIC/LYMPHATIC: No anemia. No purpura. No petechiae. No prolonged or excessive bleeding. No palpable lymph nodes. MEDICATION: Amlodipine Atorvastatin Bisoprolol Lantus 80 units twice a day Humulog PRN with sliding scale Cozaar MEDICAL/SURGICAL HISTORY: Status post cholecystectomy Hypertension Dyslipidemia Diabetes Mellitus Noncompliance of lifestyle Metabolic syndrome Nephrolithiasis ALLERGIES: Will be reported later on FAMILY/SOCIAL HISTORY: The patient is nonsmoker. No alcohol abuse. Lives my himself. Does all activity of daily living. 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 PHYSICAL EXAMINATION: VITALS:Temperature 97.8, pulse 70, respiratory rate 18, blood pressure 190/80 and pulse 96%. HEENT: Head normocephalic, atraumatic. Eyes: Extraocular muscles are intact. Pupils are equal, round and reactive to light and accommodation. Ears: No lesions. Nose appeared normal. Throat: No exudate or erythema. NECK: Supple. No JVD, no carotid bruit. No lymphadenopathy or thyromegaly. LUNGS: Decreased breath sounds but clear good air entry. Percussion note normal. Chest symmetrical. HEART: S1, S2, no S3. No murmurs. No cyanosis or clubbing. No ascites. Pulses: Dorsalis pedis and posterior tibial pulses +2 bilaterally. ABDOMEN: Soft. Nontender. Bowel sounds active. Tenderness right lower quadrant but not real tenderness. He says that the pain is deep inside, colicky type of pain. No mass felt. EXTREMITIES: No edema. Full range of motion of all extremities, equal. NEUROLOGIC: No focal deficit. Cranial nerves II through XII are grossly intact. No headache, no double vision or headache. SKIN: Not dry. Intact. Turgor - normal. LYMPHATIC: No palpable lymph nodes/no lymphedema. MUSCULOSKELETAL: Normal joints with no swelling. Muscle tone is normal. LABS: Hgb 19.5, hct 44, WBC 10,000 normal differential, creatinine 2, BUN 26, potassium 3.9. ALT 58, AST 57. U/A shows 3+ protein, 2+ blood and 2+ bacteria. CT scan of the abdomen today showed stable right hydronephrosis with perinephric stranding without visualized obstructing calculus. Findings could be sequela of recently passed calculus or urinary tract infection. There is bilateral nephrolithiasis. ASSESSMENT: 1. Right urinaric colic with evidence of perinephric stranding on the right side with right hydronephrosis without visualizing any obstructing calculus. 2. Possibility of acute pyelonephritis, right sided triggered by calculus 3. Bilateral nephrolithiasis 4. Diabetes Mellitus insulin dependant 5. Dyslipidemia 6. Hypertension 7. Metabolic syndrome PLAN: 1. Give Rocephin 1 gram today 2. Morphine Sulfate 4mg every 4 hourly for pain PRN 3. Flomax 0.4mg twice a day 4. Continue all the medications like Amlodipine, Zebeta, Cozaar 5. Continue Insulin as ordered 6. Will monitor the patient's blood sugar 7. CBC and CMP CONDITION: Stable. Possibility of transfer was discussed with the patient with this type of urological problem but with hospitals in the [place] area are full also have a lot of COVID patients he is reluctant to be transferred. He wanted to be treated and observed in this hospital to which I agreed. TIME SPENT: More than 70 minutes Plan and coordination of the patient's care discussed in the presence of nurse. GISSEL
--- NOTE | 2020-03-31 13:12 | CM.DICTOOL ---
ADMISSION: 03/30/20 13:25 DISCHARGE: MARCH 31, 2020 DATE OF SERVICE: 03/31/20 FINAL DIAGNOSIS ACUTE RIGHT URETERIC COLIC RIGHT FLANK PAIN NEPHROLITHIASIS, BILATERAL (NON OBSTRUCTING) ACUTE PYELONEPHRITIS, POSSIBLE DIABETES, TYPE 2 HYPERTENSION DYSLIPIDEMIA DIVERTICULOSIS PER CT CHOLECYSTECTOMY RIGHT SHOULDER SURGERY LAST VITALS Temp Pulse Resp BP Pulse Ox 97.4 F L 100 H 16 127/78 95 03/31/20 05:47 03/31/20 05:47 03/31/20 05:47 03/31/20 05:47 03/31/20 05:47 TAKE THESE MEDICATIONS AT HOME Acetaminophen (Tylenol) 650 mg PO Q12HR [facility] Last Admin: 03/31/20 08:52 Dose: 650 mg Documented by: Amlodipine Besylate (Norvasc) 5 mg PO DAILY [facility] Last Admin: 03/31/20 08:53 Dose: 5 mg Documented by: Ascorbic Acid (Vitamin C) 500 mg PO DAILY [facility] Last Admin: 03/31/20 08:52 Dose: 500 mg Documented by: Atorvastatin Calcium (Lipitor) 20 mg PO DAILY [facility] Last Admin: 03/31/20 08:53 Dose: 20 mg Documented by: Bisoprolol Fumarate/HCTZ (Ziac 10-6.25 Mg) 1 tab PO DAILY [facility] Last Admin: 03/31/20 08:52 Dose: 1 tab Documented by: Ferrous Sulfate (Ferrous Sulfate) 324 mg PO BIDAC [facility] Last Admin: 03/31/20 05:57 Dose: 324 mg Documented by: Insulin Glargine (Lantus) 80 unit SUBCUT BID [facility] Last Admin: 03/31/20 09:05 Dose: 80 unit Documented by: Insulin Human Lispro (Humalog) 3 - 20 unit SUBCUT PRN PRN; Protocol PRN Reason: Hyperglycemia Last Admin: 03/31/20 11:28 Dose: 4 unit Documented by: Losartan Potassium (Cozaar) 100 mg PO DAILY [facility] Last Admin: 03/31/20 08:53 Dose: 100 mg Documented by: Metformin HCl (Glucophage) 500 mg PO BIDWM [facility] Last Admin: 03/31/20 08:53 Dose: 500 mg Documented by: Morphine Sulfate (Morphine 4 Mg/Ml Syringe) 4 mg IVP Q4H PRN PRN Reason: Pain Multivitamins (Multivitamin Tablet) 1 tab PO DAILY [facility] Last Admin: 03/31/20 08:53 Dose: 1 tab Documented by: Trulicity 1.5 mg Subcutaneous on Friday FLOMAX 0.4 MG BID KEFLEX 500 MG TID FOR 7 DAYS OXYCODONE 5 MG TID PRN PAIN ALLERGIES No Known Drug Allergies Adverse Reaction (Verified 03/30/20 10:35) DISCONTINUED MEDICATIONS NONE NEW PRESCRIPTIONS: FLOMAX 0.4 MG BID KEFLEX 500 MG TID FOR 7 DAYS OXYCODONE 5 MG TID PRN PAIN SMOKING: NOT APPLICABLE DISEASE SPECIFIC EDUCATION: APPOINTMENTS PRESCRIPTIONS STRAINING URINE LAB REVIEW: 03/31/20 04:59 03/31/20 04:59 03/31/20 04:59: Sodium 139.1, Potassium 3.76, Chloride 101.2, Carbon Dioxide 29.3, Anion Gap 12.36, BUN 26.8 H, Creatinine 1.75 H, Estimated GFR (MDRD) 39.00, BUN/Creatinine Ratio 15.31, Glucose 117.0 H, Calcium 10.04, Total Bilirubin 0.46, AST 43.0, ALT 43.2, Alkaline Phosphatase 72.0, Total Protein 7.29, Albumin 4.16, Globulin 3.13, Albumin/Globulin Ratio 1.32 03/31/20 04:59: WBC 7.16, RBC 4.44 L, Hgb 13.8 L, Hct 41.0 L, MCV 92.3, MCH 31.1 H, MCHC 33.7, RDW Coeff of Brenda 13.5, Plt Count 184, Immature Gran % (Auto) 0.1, Neut % (Auto) 60.3, Lymph % (Auto) 24.4, [place] % (Auto) 11.7 H, Eos % (Auto) 2.5, Baso % (Auto) 1.0, Neut # (Auto) 4.3, Lymph # (Auto) 1.8, [place] # (Auto) 0.8, Eos # (Auto) 0.2, Baso # (Auto) 0.1, Immature Gran # (Auto) 0.0 PLAN: DISCHARGE HOME DIET: TOLERATED, WATCHES CARBOHYDRATES ACTIVITY: RESUME TOLERATED NO DRIVING IF TAKING PAIN MEDICATION AN APPOINTMENT IS SCHEDULED ON April AT 8:[address] NESBITT/LUÍS FRANCOIS APRN/MAX GALLAGHER APRN AN APPOINTMENT IS SCHEDULED ON April WITH DR. SINGLETON, UROLOGIST AT 9:30 AM CODE STATUS: FULL CODE MR. ENCARNACION IS ALERT AND ORIENTED X 4. HE IS INDEPENDENT WITH ACTIVITIES OF DAILY LIVING. MR. ENCARNACION IS AMBULATORY WITHOUT STAFF ASSISTANCE OR USE OF ASSISTIVE DEVICE. HE LIVES AT HOME WITH HIS . HE INDICATES HE IS ACTIVE OUTSIDE OF THE HOME. HE DENIES PAIN OR NAUSEA TODAY. HE IS CONTINENT OF BLADDER AND BOWEL. HE IS VOIDING WITHOUT DIFFICULTY. URINE STRAINERS ARE GIVEN FOR USE AT HOME. APPETITE IS GOOD AT 100% FOR BREAKFAST. HYDRATION STATUS IS GOOD. SKIN IS INTACT. DR. FORTUNATO NESBITT MD
--- NOTE | 2020-03-31 13:21 | PN ---
03/30/2020: Level 5 03/31/2020: D as in discharge. MTDD
--- NOTE | 2020-03-31 13:21 | DS ---
DATE OF SERVICE: 03/31/2020 FINAL DIAGNOSIS: ACUTE RIGHT URETERIC COLIC RIGHT FLANK PAIN NEPHROLITHIASIS, BILATERAL (NON OBSTRUCTING) ACUTE PYELONEPHRITIS, POSSIBLE DIABETES, TYPE 2 HYPERTENSION DYSLIPIDEMIA DIVERTICULOSIS PER CT CHOLECYSTECTOMY RIGHT SHOULDER SURGERY LAST VITALS: Temp Pulse Resp BP Pulse Ox 97.4 F L 100 H 16 127/78 95 03/31/20 05:47 03/31/20 05:47 03/31/20 05:47 03/31/20 05:47 03/31/20 05:47 DISCHARGE INSTRUCTIONS: DISCHARGE HOME. AN APPOINTMENT IS SCHEDULED ON April AT 8:[address] NESBITT/LUÍS FRNACOIS APRN/MAX GALLAGHER APRN. AN APPOINTMENT IS SCHEDULED ON April WITH DR. SINGLETON, UROLOGIST AT 9:30 AM. TAKE THESE MEDICATIONS AT HOME: Acetaminophen (Tylenol) 650 mg PO Q12HR [facility] Last Admin: 03/31/20 08:52 Dose: 650 mg Documented by: Amlodipine Besylate (Norvasc) 5 mg PO DAILY [facility] Last Admin: 03/31/20 08:53 Dose: 5 mg Documented by: Ascorbic Acid (Vitamin C) 500 mg PO DAILY [facility] Last Admin: 03/31/20 08:52 Dose: 500 mg Documented by: Atorvastatin Calcium (Lipitor) 20 mg PO DAILY [facility] Last Admin: 03/31/20 08:53 Dose: 20 mg Documented by: Bisoprolol Fumarate/HCTZ (Ziac 10-6.25 Mg) 1 tab PO DAILY [facility] Last Admin: 03/31/20 08:52 Dose: 1 tab Documented by: Ferrous Sulfate (Ferrous Sulfate) 324 mg PO BIDAC [facility] Last Admin: 03/31/20 05:57 Dose: 324 mg Documented by: Insulin Glargine (Lantus) 80 unit SUBCUT BID [facility] Last Admin: 03/31/20 09:05 Dose: 80 unit Documented by: Insulin Human Lispro (Humalog) 3 - 20 unit SUBCUT PRN PRN; Protocol PRN Reason: Hyperglycemia Last Admin: 03/31/20 11:28 Dose: 4 unit Documented by: Losartan Potassium (Cozaar) 100 mg PO DAILY [facility] Last Admin: 03/31/20 08:53 Dose: 100 mg Documented by: Metformin HCl (Glucophage) 500 mg PO BIDWM [facility] Last Admin: 03/31/20 08:53 Dose: 500 mg Documented by: Morphine Sulfate (Morphine 4 Mg/Ml Syringe) 4 mg IVP Q4H PRN PRN Reason: Pain Multivitamins (Multivitamin Tablet) 1 tab PO DAILY [facility] Last Admin: 03/31/20 08:53 Dose: 1 tab Documented by: Josephine 1.5 mg Subcutaneous on Friday FLOMAX 0.4 MG BID KEFLEX 500 MG TID FOR 7 DAYS OXYCODONE 5 MG TID PRN PAIN ALLERGIES: No Known Drug Allergies Adverse Reaction (Verified 03/30/20 10:35) DISCONTINUED MEDICATIONS: NONE NEW PRESCRIPTIONS: FLOMAX 0.4 MG BID KEFLEX 500 MG TID FOR 7 DAYS OXYCODONE 5 MG TID PRN PAIN SMOKING: NOT APPLICABLE DISEASE SPECIFIC EDUCATION: APPOINTMENTS PRESCRIPTIONS STRAINING URINE LAB REVIEW: 03/31/20 04:59 03/31/20 04:59 03/31/20 04:59: Sodium 139.1, Potassium 3.76, Chloride 101.2, Carbon Dioxide 29.3, Anion Gap 12.36, BUN 26.8 H, Creatinine 1.75 H, Estimated GFR (MDRD) 39.00, BUN/Creatinine Ratio 15.31, Glucose 117.0 H, Calcium 10.04, Total Bilirubin 0.46, AST 43.0, ALT 43.2, Alkaline Phosphatase 72.0, Total Protein 7.29, Albumin 4.16, Globulin 3.13, Albumin/Globulin Ratio 1.32 03/31/20 04:59: WBC 7.16, RBC 4.44 L, Hgb 13.8 L, Hct 41.0 L, MCV 92.3, MCH 31.1 H, MCHC 33.7, RDW Coeff of Brenda 13.5, Plt Count 184, Immature Gran % (Auto) 0.1, Neut % (Auto) 60.3, Lymph % (Auto) 24.4, [place] % (Auto) 11.7 H, Eos % (Auto) 2.5, Baso % (Auto) 1.0, Neut # (Auto) 4.3, Lymph # (Auto) 1.8, [place] # (Auto) 0.8, Eos # (Auto) 0.2, Baso # (Auto) 0.1, Immature Gran # (Auto) 0.0 CODE STATUS: FULL CODE DIET: TOLERATED, WATCHES CARBOHYDRATES ACTIVITY: RESUME TOLERATED NO DRIVING IF TAKING PAIN MEDICATION HOSPITAL COURSE: This 69 year old /WHITE M was hospitalized 03/30/20 with right urinary colic. The patient says his pain has resolved and doesn't have pain anymore. He was given Morphine Sulfate a couple of times last night. He has been up and about wants to go home. No fever or chills. Cardiovascular status is stable. The patient's x-ray showed there is not calculi obstructing flow on right side. Very likely spasm is from Calculi being passed. Discharge home on antibiotics and Oxycodone 5mg three times a day for a total of 14 days given to him. Addiction possibility explained to him. Advised to drink a lot of fluids. He will be seen by outpatient urology in case he needs one. CONDITION: Stable. TIME SPENT: More than 60 minutes. TRAVOND
== END 2020-03-31 13:40 | disposition home or self-care (01) | DRG 693 ==
LOC: ED 10:14 → MEDSURG B 13:25
PROVIDERS: ADMIT Internal Medicine; ATTEND Internal Medicine
DX: I10 Essential (primary) hypertension; N20.0 Calculus of kidney; E11.9 Type 2 diabetes mellitus without complications; M54.5 Low back pain; Z87.19 Personal history of other diseases of the digestive system; K57.31 Diverticulosis of large intestine without perforation or abscess with bleeding; N23 Unspecified renal colic; Z79.4 Long term (current) use of insulin; E78.5 Hyperlipidemia, unspecified; N10 Acute pyelonephritis